=== PATIENT | female | born 1980 | race African-American/Black ===

== ENCOUNTER 2016-08-16 04:52 | Emergency (ER) | payer SELFPAY ==
[~2016-08-16] VITALS: Ht 170.2 cm; Wt 72.6 kg
[~2016-08-16 04:52] MED LIST: ABILIFY; BIRTH CONTROL
[2016-08-16 07:10] LABS: BASOPHILS % 0.6 % (0.0-2.0); EOSINOPHILS % 0.8 % (0.0-5.0); HEMATOCRIT. 33.6 % (36.0-48.0); HEMOGLOBIN. 11.3 g/dL (12.0-16.0); LYMPHOCYTES % 39.2 % (20.0-50.0); MEAN CORPUSCULAR HEMOGLOBIN 29.2 pg (28.0-32.0); MEAN CORPUSCULAR HGB CONC 33.8 g/dL (31.0-37.0); MEAN CORPUSCULAR VOLUME 86.5 fL (81.0-99.0); MEAN PLATELET VOLUME 7.7 fl (7.4-10.4); NEUTROPHILS % 53.4 % (40.0-76.0); PLATELET 271 x1000/uL (130-400); RED BLOOD CELL COUNT 3.88 mill/uL (4.2-5.4); WHITE BLOOD COUNT 7.7 x1000/uL (4.5-11.0)
[2016-08-16 07:28] LABS: ACETAMINOPHEN < 2 ug/mL (10-30); ALANINE AMINOTRANSFERASE 20 IU/L (13-61); ALBUMIN 3.2 g/dL (3.4-5.0); ANION GAP 12; CALCIUM 8.6 mg/dL (8.5-10.1); CARBON DIOXIDE 25 mEq/L (21-32); CHLORIDE 110 mEq/L (98-107); ETHANOL BLOOD < 10 mg/dL; INDEX HEMOLYSI 1 (1-3); INDEX ICTERIC 1 (1-4); INDEX LIPEMIC 1 (1-3); UREA NITROGEN BLOOD 8 mg/dL (7-21); eGFR > 60 mL/min (>60)
[2016-08-16 07:34] LABS: CLARITY URINE CLEAR (CLEAR); COLOR URINE YELLOW (YELLOW); GLUCOSE URINE NEGATIVE (NEGATIVE); KETONES URINE TRACE (NEGATIVE); LEUKOCYTE ESTERASE URINE NEGATIVE (NEGATIVE); NITRITE URINE NEGATIVE (NEGATIVE); OCCULT BLOOD URINE NEGATIVE (NEGATIVE); PH URINE 5.5 (4.5-8.0); PROTEIN URINE NEGATIVE (NEGATIVE); SPECIFIC GRAVITY URINE 1.026 (1.005-1.030)
[2016-08-16 07:41] LABS: *BARBITURATES SCREEN URINE NEGATIVE (NEGATIVE); *BENZODIAZEPINES SCREEN URINE NEGATIVE (NEGATIVE); *COCAINE SCREEN URINE NEGATIVE (NEGATIVE); CANNABINOID URINE SCREEN NEGATIVE (NEGATIVE); METHADONE URINE SCREEN NEGATIVE (NEGATIVE); OPIATES URINE SCREEN NEGATIVE (NEGATIVE); PHENCYCLIDINE URINE SCREEN NEGATIVE (NEGATIVE)
[2016-08-16 08:03] LABS: *AMPHETAMINES SCREEN URINE PRESUMTIVE POSITIVE (NEGATIVE); ECSTASY MDMA SCREEN URINE CONF.TEST INDICATED (NEGATIVE)
[2016-08-16 14:20] VITALS: BP 124/62
== END 2016-08-16 17:12 | disposition home or self-care (01) ==
LOC: ER 04:52
DX: F19.10 Other psychoactive substance abuse, uncomplicated (principal); F20.9 Schizophrenia, unspecified; F32.9 Major depressive disorder, single episode, unspecified; F17.210 Nicotine dependence, cigarettes, uncomplicated
CPT/HCPCS: 36415; 80053; 80305; 80307; 80329; 81003; 81025; 85025; 99285; G0482; Z7610

== ENCOUNTER 2016-08-25 00:56 | Emergency (ER) | payer SELFPAY ==
[~2016-08-25] VITALS: Ht 175.3 cm; Wt 86.6 kg
[2016-08-25 04:35] VITALS: BP 133/81
[2016-08-25 06:09] LABS: CLARITY URINE CLEAR (CLEAR); COLOR URINE YELLOW (YELLOW); GLUCOSE URINE NEGATIVE (NEGATIVE); KETONES URINE NEGATIVE (NEGATIVE); LEUKOCYTE ESTERASE URINE TRACE (NEGATIVE); NITRITE URINE NEGATIVE (NEGATIVE); OCCULT BLOOD URINE 1+ (NEGATIVE); PH URINE 6.5 (4.5-8.0); PROTEIN URINE NEGATIVE (NEGATIVE); SPECIFIC GRAVITY URINE 1.004 (1.005-1.030)
[2016-08-25] MEDS ORDERED: LIDOCAINE HCL 1% 20ML VIAL (Pyxis) INJ INFIL ONE (06:15)
[2016-08-25] MEDS ORDERED: CEFTRIAXONE SODIUM 250 MG/VIAL IM ONE (06:15)
[2016-08-25] MEDS ORDERED: ONDANSETRON 4MG ODT PO ONE (06:15)
[2016-08-25] MEDS ORDERED: AZITHROMYCIN 500 MG TABLET PO ONE (06:15)
== END 2016-08-25 06:45 | disposition home or self-care (01) ==
LOC: ER 00:59
DX: N39.0 Urinary tract infection, site not specified (principal); N89.8 Other specified noninflammatory disorders of vagina; F20.9 Schizophrenia, unspecified
CPT/HCPCS: 81001; 81025; 96372; 99283; J0696; J3490; Q0162

== ENCOUNTER 2018-03-08 11:35 | Emergency (ER) | payer MEDICAID ==
[~2018-03-08] VITALS: Ht 175.3 cm; Wt 110.0 kg
[2018-03-08 11:48] VITALS: BP 153/83
== END 2018-03-08 15:52 | disposition left against medical advice (07) ==
LOC: ER 13:12
DX: R68.89 Other general symptoms and signs (principal); Z53.21 Procedure and treatment not carried out due to patient leaving prior to being seen by health care provider

== ENCOUNTER 2018-03-15 10:46 | Emergency (ER) | payer MEDICAID ==
[~2018-03-15] VITALS: Ht 175.3 cm; Wt 101.0 kg
[2018-03-15 10:57] VITALS: BP 113/62
== END 2018-03-15 11:52 | disposition home or self-care (01) ==
LOC: ER 10:46
DX: N89.8 Other specified noninflammatory disorders of vagina (principal); Z90.49 Acquired absence of other specified parts of digestive tract
CPT/HCPCS: 81025; 99282

== ENCOUNTER 2020-08-28 17:54 | Emergency (ER) | payer MEDICAID ==
[~2020-08-28] VITALS: Ht 177.8 cm; Wt 121.0 kg
[2020-08-28 22:40] LABS: CLARITY URINE CLEAR (CLEAR); COLOR URINE YELLOW (YELLOW); KETONES URINE NEGATIVE (NEGATIVE); LEUKOCYTE ESTERASE URINE TRACE (NEGATIVE); NITRITE URINE NEGATIVE (NEGATIVE); OCCULT BLOOD URINE NEGATIVE (NEGATIVE); PH URINE 5.5 (4.5-8.0); PROTEIN URINE NEGATIVE (NEGATIVE); SPECIFIC GRAVITY URINE 1.025 (1.005-1.030); UROBILINOGEN URINE 0.2 E.U./dL (0.2-1.0)
[2020-08-28 22:54] LABS: *BARBITURATES SCREEN URINE NEGATIVE (NEGATIVE); *BENZODIAZEPINES SCREEN URINE NEGATIVE (NEGATIVE)
[2020-08-28 22:56] LABS: *COCAINE SCREEN URINE NEGATIVE (NEGATIVE); CANNABINOID URINE SCREEN NEGATIVE (NEGATIVE); METHADONE URINE SCREEN NEGATIVE (NEGATIVE); OPIATES URINE SCREEN NEGATIVE (NEGATIVE); PHENCYCLIDINE URINE SCREEN NEGATIVE (NEGATIVE)
[2020-08-28 23:04] LABS: *AMPHETAMINES SCREEN URINE PRESUMTIVE POSITIVE (NEGATIVE)
[2020-08-28] MEDS ORDERED: DOXY100C2 MT (23:24)
[2020-08-28] MEDS ORDERED: AZITHROMYCIN 500 MG TABLET PO ONE (23:30)
[2020-08-28] MEDS ORDERED: CEFTRIAXONE SODIUM 250 MG/VIAL IM ONE (23:30)
[2020-08-28 23:56] VITALS: BP 141/89
[2020-08-31 04:09] LABS: NEISSERIA GONORRHOEAE NAA Negative (Negative)
== END 2020-08-28 23:56 | disposition home or self-care (01) ==
LOC: ER 17:54
DX: F15.10 Other stimulant abuse, uncomplicated (principal); N39.0 Urinary tract infection, site not specified; F20.9 Schizophrenia, unspecified; F32.9 Major depressive disorder, single episode, unspecified; Z90.49 Acquired absence of other specified parts of digestive tract
CPT/HCPCS: 80305; 81003; 81025; 86703; 87491; 87591; 93005; 96372; 99284; J0696; Z7610

== ENCOUNTER 2021-07-13 02:18 | Emergency (ER) | payer MEDICAID, OTHER ==
[~2021-07-13] VITALS: Ht 172.7 cm; Wt 113.0 kg
[~2021-07-13 02:18] MED LIST changes: +DOXY100C5 MT; +METR500T MT
[2021-07-13] MEDS ORDERED: IBUPROFEN 600MG TABLET PO STA (03:35)
[2021-07-13 03:57] LABS: BASOPHILS % 0.4 % (0.0-2.0); EOSINOPHILS % 0.3 % (0.0-5.0); HEMATOCRIT. 39.6 % (36.0-48.0); HEMOGLOBIN. 13.1 g/dL (12.0-16.0); LYMPHOCYTES % 24.8 % (20.0-50.0); MEAN CORPUSCULAR VOLUME 87.5 fL (81.0-99.0); MEAN PLATELET VOLUME 7.1 fl (7.4-10.4); MONOCYTES % 5.3 % (2.0-8.0); NEUTROPHILS % 69.2 % (40.0-76.0); PLATELET 383 x1000/uL (130-400); RED BLOOD CELL COUNT 4.53 mill/uL (4.2-5.4); RED CELL DISTRIBUTION WIDTH 14.5 % (11.6-14.6)
[2021-07-13 04:09] LABS: CHLORIDE 107 mEq/L (98-107)
[2021-07-13 04:16] LABS: HCG SCREEN NEGATIVE
[2021-07-13 05:03] LABS: CLARITY URINE CLEAR (CLEAR); COLOR URINE YELLOW (YELLOW); KETONES URINE TRACE (NEGATIVE); LEUKOCYTE ESTERASE URINE TRACE (NEGATIVE); NITRITE URINE NEGATIVE (NEGATIVE); OCCULT BLOOD URINE 1+ (NEGATIVE); PROTEIN URINE NEGATIVE (NEGATIVE); SPECIFIC GRAVITY URINE 1.025 (1.005-1.030)
[2021-07-13] MEDS ORDERED: CEPH500C2 MT (05:09)
[2021-07-13] MEDS ORDERED: IBUP-2028 MT (05:09)
[2021-07-13 05:32] VITALS: BP 122/76
== END 2021-07-13 05:34 | disposition home or self-care (01) ==
LOC: ER 02:18
DX: R10.9 Unspecified abdominal pain (principal); N39.0 Urinary tract infection, site not specified; F31.9 Bipolar disorder, unspecified; F20.9 Schizophrenia, unspecified; F15.10 Other stimulant abuse, uncomplicated; Z79.899 Other long term (current) drug therapy
CPT/HCPCS: 36415; 80053; 81003; 81025; 84703; 85025; 99283

== ENCOUNTER 2021-08-27 21:25 | Emergency (ER) | payer MEDICAID ==
[~2021-08-27] VITALS: Ht 175.3 cm; Wt 100.0 kg
[~2021-08-27 21:25] MED LIST changes: +CEPH500C2 MT; +IBUP-2028 MT
[2021-08-27 22:45] VITALS: BP 121/74
[2021-08-28] MEDS ORDERED: TETRACAINE 0.5% OPHTH DROPS 4ML LEFTEYE ONE
[2021-08-28] MEDS ORDERED: FLUORESCEIN SODIUM 1MG/STRIP LEFTEYE ONE
== END 2021-08-28 02:01 | disposition home or self-care (01) ==
LOC: ER 21:25
DX: H57.12 Ocular pain, left eye (principal); F15.10 Other stimulant abuse, uncomplicated; Z79.899 Other long term (current) drug therapy
CPT/HCPCS: 81025; 99282

== ENCOUNTER 2021-10-04 11:34 | Emergency (ER) | payer MEDICAID ==
[~2021-10-04] VITALS: Ht 177.8 cm; Wt 114.0 kg
[2021-10-04 11:43] VITALS: BP 120/68
[2021-10-04] MEDS ORDERED: LIDOCAINE HCL 1% 20ML VIAL (Pyxis) INJ INFIL ONE (13:00)
[2021-10-04] MEDS ORDERED: CEFTRIAXONE SODIUM 500 MG/VIAL IM ONE (13:00)
[2021-10-04] MEDS ORDERED: DOXY100C5 MT (13:29)
[2021-10-06 04:12] LABS: NEISSERIA GONORRHOEAE NAA Negative (Negative)
== END 2021-10-04 13:48 | disposition home or self-care (01) ==
LOC: ER 11:34
DX: Z20.2 Contact with and (suspected) exposure to infections with a predominantly sexual mode of transmission (principal); F20.9 Schizophrenia, unspecified; F32.A Depression, unspecified; F15.10 Other stimulant abuse, uncomplicated; Z90.49 Acquired absence of other specified parts of digestive tract; Z88.6 Allergy status to analgesic agent
CPT/HCPCS: 81025; 87491; 87591; 96372; 99283; J0696; J3490

== ENCOUNTER 2022-11-03 03:06 | Emergency (ER) | payer MEDICAID, OTHER ==
[~2022-11-03] VITALS: Ht 170.2 cm; Wt 72.0 kg
[2022-11-03 03:09] VITALS: BP 133/90; PULSE 122; RESP 18; TEMP 98.4; O2SAT 98
[2022-11-03] MEDS ORDERED: LORAZEPAM 1MG TABLET PO ONE (04:15)
== END 2022-11-03 04:50 | disposition home or self-care (01) ==
LOC: ER 03:06
DX: T43.651A Poisoning by methamphetamines accidental (unintentional), initial encounter (principal); Z88.6 Allergy status to analgesic agent; Z86.59 Personal history of other mental and behavioral disorders; Y92.9 Unspecified place or not applicable
CPT/HCPCS: 93005; 99283